=== PATIENT | male | born 1970 | race Caucasian/White ===

== ENCOUNTER 2024-11-24 10:42 | Inpatient (IN) | payer MEDICAID ==
[~2024-11-24] VITALS: Ht 162.6 cm; Wt 71.7 kg
[~2024-11-24 10:42] MED LIST: GABA-529 MT; SERT25TA74 MT; TRAZ-251 MT
[2024-11-24] MEDS: SODIUM CHLORIDE 0.9% 1,000 ML IV ONE (11:20)
[2024-11-24 11:25] LABS: BASOPHILS % 1.0 % (0.0-2.0); EOSINOPHILS % 0.1 % (0.0-5.0); HEMATOCRIT. 43.6 % (42.0-52.0); HEMOGLOBIN. 15.3 g/dL (14.0-18.0); LYMPHOCYTES % 22.4 % (20.0-50.0); MEAN PLATELET VOLUME 8.2 fl (7.4-10.4); MONOCYTES % 3.5 % (2.0-8.0); NEUTROPHILS % 73.0 % (40.0-76.0); PLATELET 114 x1000/uL (130-400); RED BLOOD CELL COUNT 4.63 mill/uL (4.7-6.1); RED CELL DISTRIBUTION WIDTH 14.0 % (11.6-14.6)
[2024-11-24] MEDS ORDERED: HYDROCODONE/ACETAMINOPHEN 5/325MG TABLET PO PRN (11:30)
[2024-11-24] MEDS ORDERED: MAGNESIUM/ALUMINUM HYDROXIDE/SIMETHICONE 30ML UDC PO PRN ×2 (11:30→13:30)
[2024-11-24] MEDS ORDERED: ACETAMINOPHEN 325MG TABLET PO PRN ×2 (11:30→13:30)
[2024-11-24] MEDS ORDERED: ZOLPIDEM TARTRATE 5MG TABLET PO PRN (11:30)
[2024-11-24] MEDS ORDERED: ENOXAPARIN 40MG/0.4ML SYR SUBCUT SCH (11:30)
[2024-11-24] MEDS ORDERED: SODIUM CHLORIDE 0.9% 1,000 ML IV SCH (11:30)
[2024-11-24] MEDS ORDERED: MVI, ADULT NO.1 10 ML, FOLIC ACID 1 MG, THIAMINE HCL 100 MG in SODIUM CHLORIDE 0.9% 1,0... IV SCH (11:30)
[2024-11-24] MEDS ORDERED: ONDANSETRON HCL 4MG/2ML INJ IV PRN (11:30)
[2024-11-24] MEDS ORDERED: CLONIDINE 0.1MG TABLET PO PRN ×2 (11:30→13:30)
[2024-11-24] MEDS: CHLORDIAZEPOXIDE 25MG CAPSULE PO ONE (11:35)
[2024-11-24] MEDS: LORAZEPAM 2MG/ML UD SYRINGE IV NR (11:36)
[2024-11-24 11:40] LABS: CREATININE 1.0 mg/dL (0.6-1.3); UREA NITROGEN BLOOD 17 mg/dL (9-23)
[2024-11-24 12:00] VITALS: BP 117/75; PULSE 76; RESP 18; TEMP 36.7; O2SAT 94
[2024-11-24 13:42] VITALS: BP 117/81; PULSE 95; RESP 18; TEMP 36.696
[2024-11-24] MEDS ORDERED: NALOXONE HCL 0.4MG/ML VIAL IV PRN (13:45)
[2024-11-24] MEDS ORDERED: CHLORDIAZEPOXIDE 25MG CAPSULE PO SCH (14:00)
[2024-11-24] MEDS: SODIUM CHLORIDE 0.9% 1,000 ML IV SCH (15:46)
[2024-11-24] MEDS: ENOXAPARIN 40MG/0.4ML SYR SUBCUT SCH (15:46)
[2024-11-24 16:00] VITALS: BP 131/80; PULSE 60; RESP 18; TEMP 36.5; O2SAT 97
[2024-11-24] MEDS: IPRATROPIUM/ALBUTEROL 0.5-3(2.5)MG/3ML NEB NEB SCH (16:55)
[2024-11-24] MEDS: MVI, ADULT NO.1 10 ML, FOLIC ACID 1 MG, THIAMINE HCL 100 MG in SODIUM CHLORIDE 0.9% 1,0... IV SCH (17:23)
[2024-11-24 20:00] VITALS: BP 133/85; PULSE 94; RESP 16; TEMP 37.2; O2SAT 99
[2024-11-24] MEDS: LORAZEPAM 2MG/ML UD SYRINGE IV PRN (20:04)
[2024-11-24 21:42] VITALS: PULSE 89; RESP 20; O2SAT 97
[2024-11-24] MEDS: ZOLPIDEM TARTRATE 5MG TABLET PO PRN (23:42)
[2024-11-25] VITALS (9 sets, daily range): BP systolic 118–127; BP diastolic 71–80; PULSE 66–106; RESP 15–20; TEMP 36.4–36.9; O2SAT 94–99
[2024-11-25 00:52] LABS: CLARITY URINE CLEAR (CLEAR); COLOR URINE YELLOW (YELLOW); GLUCOSE URINE NEGATIVE (NEGATIVE); KETONES URINE 3+ (NEGATIVE); LEUKOCYTE ESTERASE URINE NEGATIVE (NEGATIVE); NITRITE URINE NEGATIVE (NEGATIVE); OCCULT BLOOD URINE 1+ (NEGATIVE); PH URINE 5.5 (4.5-8.0); PROTEIN URINE 2+ (NEGATIVE); SPECIFIC GRAVITY URINE 1.022 (1.005-1.030); UROBILINOGEN URINE 0.2 E.U./dL (0.2-1.0)
[2024-11-25] MEDS: HYDROCODONE/ACETAMINOPHEN 5/325MG TABLET PO PRN (00:53)
[2024-11-25 01:09] LABS: *AMPHETAMINES SCREEN URINE NEGATIVE (NEGATIVE)
[2024-11-25 01:10] LABS: *BARBITURATES SCREEN URINE NEGATIVE (NEGATIVE); *BENZODIAZEPINES SCREEN URINE NEGATIVE (NEGATIVE); *COCAINE SCREEN URINE NEGATIVE (NEGATIVE); CANNABINOID URINE SCREEN NEGATIVE (NEGATIVE); ECSTASY MDMA SCREEN URINE NEGATIVE (NEGATIVE); METHADONE URINE SCREEN NEGATIVE (NEGATIVE); OPIATES URINE SCREEN NEGATIVE (NEGATIVE); PHENCYCLIDINE URINE SCREEN NEGATIVE (NEGATIVE)
[2024-11-25 03:55] LABS: RBC URINE 0-2 /hpf (0-2); WBC URINE 0-2 /hpf (0-2)
[2024-11-25 03:57] LABS: BACTERIA URINE NONE SEEN; SQUAMOUS EPITHELIAL CELL URINE NONE SEEN /lpf (RARE/1+)
[2024-11-25 08:09] LABS: BASOPHILS % 0.8 % (0.0-2.0); EOSINOPHILS % 2.1 % (0.0-5.0); HEMATOCRIT. 38.6 % (42.0-52.0); HEMOGLOBIN. 13.3 g/dL (14.0-18.0); LYMPHOCYTES % 25.7 % (20.0-50.0); MEAN PLATELET VOLUME 8.9 fl (7.4-10.4); MONOCYTES % 5.8 % (2.0-8.0); NEUTROPHILS % 65.6 % (40.0-76.0); PLATELET 80 x1000/uL (130-400); RED BLOOD CELL COUNT 4.06 mill/uL (4.7-6.1); RED CELL DISTRIBUTION WIDTH 14.3 % (11.6-14.6)
[2024-11-25 08:34] LABS: CREATININE 0.9 mg/dL (0.6-1.3)
[2024-11-25 08:35] LABS: UREA NITROGEN BLOOD 19 mg/dL (9-23)
[2024-11-25] MEDS: PANTOPRAZOLE SODIUM 40 MG/VIAL IV SCH (08:54)
[2024-11-25] MEDS ORDERED: PANTOPRAZOLE SODIUM 40 MG/VIAL IV SCH (09:00)
[2024-11-25] MEDS: ONDANSETRON HCL 4MG/2ML INJ IV PRN (11:08)
[2024-11-25] MEDS: DIPHENOXYLATE/ATROPINE 2.5/0.025MG TABLET PO NR (12:24)
[2024-11-25] MEDS: MVI, ADULT NO.1 10 ML, FOLIC ACID 1 MG, THIAMINE HCL 100 MG in SODIUM CHLORIDE 0.9% 1,0... IV SCH (12:25)
[2024-11-25] MEDS: POTASSIUM CHLORIDE 20MEQ TABLET SR PO SCH (14:11)
== END 2024-11-25 22:10 | disposition left against medical advice (07) | DRG 241 ==
LOC: ER 10:42 → EDBEDREQ 12:15 → EDBEDREQTM 12:15 → 5WST 12:22 → ENRESERV 12:59
PROVIDERS: ADMIT Internal Medicine; ATTEND Internal Medicine
DX: K29.70 Gastritis, unspecified, without bleeding (principal); F10.239 Alcohol dependence with withdrawal, unspecified; F32.A Depression, unspecified; F41.9 Anxiety disorder, unspecified; R00.0 Tachycardia, unspecified; Y90.7 Blood alcohol level of 200-239 mg/100 ml; Z53.29 Procedure and treatment not carried out because of patient's decision for other reasons
CPT/HCPCS: 36415; 80048; 80305; 80320; 81003; 84443; 85025; 93005; 93970; 94070; 94640; 94664; 98960; 99291; J1650; J2060; J2405; J2470; J3411; J3490; J7030; G0480